=== PATIENT | male | born 1965 ===

== ENCOUNTER 2016-12-09 13:33 | Emergency (ER) | payer MEDICARE, MEDICAID ==
[2016-12-09 14:15] VITALS: RESP 18; TEMP 98.3; O2SAT 97
[2016-12-09] MEDS ORDERED: Tobramycin/Dexamethasone OPHT OINT OD STA (14:19)
[2016-12-09] MEDS ORDERED: Tobramycin 0.3% OPH OINT ONE (14:27)
--- NOTE | 2016-12-09 14:42 | C.PDOC ---
History Of Present Illness 51 y/o male presents to the ED with complains of itching to bilateral eyes and runny nose over the past week due to allergies. Pt states yesterday right eye became increasingly itchy, rubbing the eye resulting in increased swelling. Pt put vaseline with aloe in the right eye. Denies pain, discharge, tearing or any other complaints. Denies using glasses or contact lenses. Time Seen by Provider: 12/09/16 13:51 Chief Complaint (Nursing): Eye Problem History Per: Patient History/Exam Limitations: no limitations Onset/Duration Of Symptoms: Days Current Symptoms Are (Timing): Worse Severity: Moderate Quality: denies: "Pain" Wears Contact Lens?: No Associated Symptoms: Swelling, Itching. denies: Discharge From Eye Recent travel outside of the [place]: No Past Medical History Reviewed: Historical Data, Nursing Documentation, Vital Signs Vital Signs: Last Vital Signs Temp 98.3 F 12/09/16 13:46 Pulse 56 L 12/09/16 14:50 Resp 18 12/09/16 14:50 BP 137/80 12/09/16 14:50 Pulse Ox 97 12/09/16 15:10 - Medical History PMH: Depression, HTN Family History: States: Unknown Family Hx - Social History Hx Alcohol Use: Yes Hx Substance Use: No - Immunization History Hx Tetanus Toxoid Vaccination: No Hx Influenza Vaccination: No Hx Pneumococcal Vaccination: No Review Of Systems Except As Marked, All Systems Reviewed And Found Negative. Constitutional: Negative for: Fever Eyes: Positive for: Eyelid Inflammation, Other (itchy eyes). Negative for: Pain Respiratory: Negative for: Shortness of Breath Physical Exam - Physical Exam Appears: Non-toxic, No Acute Distress Skin: Warm, Dry, No Rash Head: Atraumatic, Normacephalic, Other (moderate right periorbital swelling) Eye(s): bilateral: PERRL, EOMI, right: Other (mild conjunctival injection of right eye) Ear(s): Bilateral: Normal Nose: Normal Oral Mucosa: Moist Throat: Normal, No Erythema Neck: Normal ROM, Supple Chest: Symmetrical Cardiovascular: Rhythm Regular, No Friction Rub, No Murmur Respiratory: Normal Breath Sounds, No Rales, No Rhonchi, No Wheezing Neurological/Psych: Oriented x3, Normal Speech, Normal Cranial Nerves, Normal Motor Gait: Steady ED Course And Treatment O2 Sat by Pulse Oximetry: 97 (room air) Pulse Ox Interpretation: Normal Medical Decision Making Medical Decision Making: Right eye irrigated with 60mL saline with mild relief. 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 Visual acuity slightly affected due to vaseline in eye, improved after vaseline rinsed out. Pt given tobradex in ED. Disposition - Disposition Referrals: Alexander Rayo MD [Staff Provider] - Disposition: HOME/ ROUTINE Disposition Time: 14:39 Condition: GOOD Additional Instructions: Stop rubbing the eyes. Follow up with the Eye doctor within 1-2 days. Return if worsened. 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 - Scribe Statement The provider has reviewed the documentation as recorded by the January Modi All medical record entries made by the January were at my direction and personally dictated by me. I have reviewed the chart and agree that the record accurately reflects my personal performance of the history, physical exam, medical decision making, and the department course for this patient. I have also personally directed, reviewed, and agree with the discharge instructions and disposition.
[2016-12-09 14:51] VITALS: BP 137/80; PULSE 56
== END 2016-12-09 14:51 | disposition home or self-care (01) ==
LOC: C.ER 13:33
DX: H10.13 Acute atopic conjunctivitis, bilateral (principal)

== ENCOUNTER 2017-01-22 00:07 | Emergency (ER) | payer MEDICARE, MEDICAID ==
[2017-01-22 00:17] VITALS: BP 135/85; PULSE 58; RESP 16; TEMP 98.3; O2SAT 97
[2017-01-22] MEDS ORDERED: Bacitracin 500 Units/gm Oint Foilpak UD TOP ONE (01:00)
[2017-01-22] MEDS ORDERED: DiphenhydrAMINE 50 mg/ml Inj IM STA (01:00)
[2017-01-22] MEDS ORDERED: Bacitracin 500 Units/gm Oint Foilpak UD ONE (01:02)
[2017-01-22] MEDS ORDERED: DiphenhydrAMINE 50 mg/ml Inj ONE (01:02)
--- NOTE | 2017-01-22 01:04 | C.PDOC ---
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 Pt denies penile lesion, discharge, fever, chills, rash, incontinence, or any other complaints. Time Seen by Provider: 01/22/17 00:40 Chief Complaint (Nursing): Abnormal Skin Integrity History Per: Patient History/Exam Limitations: no limitations Onset/Duration Of Symptoms: Hrs Current Symptoms Are (Timing): Still Present Quality Of Symptoms: Itching Severity: Mild Recent travel outside of the [place]: No Additional History Per: Patient Past Medical History Reviewed: Historical Data, Nursing Documentation, Vital Signs Vital Signs: Last Vital Signs Temp 98.3 F 01/22/17 00:12 Pulse 58 L 01/22/17 00:12 Resp 16 01/22/17 00:12 BP 135/85 01/22/17 00:12 Pulse Ox 97 01/22/17 04:13 - Medical History PMH: Depression, HTN Family History: States: Unknown Family Hx - Social History Hx Alcohol Use: Yes Hx Substance Use: No - Immunization History Hx Tetanus Toxoid Vaccination: No Hx Influenza Vaccination: No Hx Pneumococcal Vaccination: No Review Of Systems Constitutional: Negative for: Fever, Chills Genitourinary: Positive for: Other (Itchiness and irritation to the genital area ). Negative for: Incontinence, Penile Discharge, Rash, Penile Pain (Lesion) Physical Exam - Physical Exam Appears: Non-toxic, No Acute Distress Skin: Warm, Dry Head: Atraumatic, Normacephalic Eye(s): bilateral: Normal Inspection Cardiovascular: Rhythm Regular Respiratory: Normal Breath Sounds, No Accessory Muscle Use Male Genital: No Testicular Tenderness, No Inguinal Tenderness, Other (Diffuse erythema to the perineal area incl scrotum. No lesions. No lacerations or abrasions.) Neurological/Psych: Oriented x3, Normal Speech, Normal Cognition ED Course And Treatment O2 Sat by Pulse Oximetry: 97 (RA) Pulse Ox Interpretation: Normal Progress Note: Impression: 51 y/o male c/o irritation and itching to the genital area after shaving today. Plans: benadryl IM, bacitracin oint. Benadryl IM administered and bacitracin oint applied to area. Pt reports he feels better. Pt was instructed to follow with PMD within 1-2 days if symptoms continues to worsen. Reassessment Condition: Improved Disposition Counseled Patient/Family Regarding: Diagnosis, Need For Followup, Rx Given - Disposition Referrals: Breanna Georges MD [Non-Staff] - Disposition: HOME/ ROUTINE Disposition Time: 01:02 Condition: STABLE Additional Instructions: Please follow up with PMD Apply cold compress to area Apply bacitracin oint Benadryl for itching as needed Return to ER if worse Prescriptions: Bacitracin Ointment [Bacitracin] 30 gm TOP BID #1 tube DiphenhydrAMINE [Benadryl] 25 mg PO TID #20 cap Instructions: Dermatitis (ED) - Clinical Impression Clinical Impression: Skin irritation - Scribe Statement The provider has reviewed the documentation as recorded by the Scribvalerie wilson All medical record entries made by the Miguelibvalerie were at my direction and personally dictated by me. I have reviewed the chart and agree that the record accurately reflects my personal performance of the history, physical exam, medical decision making, and the department course for this patient. I have also personally directed, reviewed, and agree with the discharge instructions and disposition.
== END 2017-01-22 01:10 | disposition home or self-care (01) ==
LOC: C.ER 00:07
DX: L98.8 Other specified disorders of the skin and subcutaneous tissue (principal)
CPT/HCPCS: 96372; 99282; J1200

== ENCOUNTER 2018-09-24 16:18 | Outpatient (CLI) | payer MEDICARE, MEDICAID | END 2018-09-25 15:23 | disposition home or self-care (01) | LOC: C.MRIC 16:18 | DX: M54.17 Radiculopathy, lumbosacral region (principal); M54.12 Radiculopathy, cervical region ==